=== PATIENT | male | born 1990 | race Caucasian/White ===

== ENCOUNTER 2018-03-13 09:36 | Emergency (ER) | payer OTHER ==
--- NOTE | 2018-03-13 09:47 | ED Physician Documentation ---
PD HPI HEADACHE - Stated complaint Stated Complaint: MIGRAINE/NAUSEA - History obtained from History obtained from: Patient - History of Present Illness Timing - onset: Last night (during the night, awoke with some headache, and it was more consistent/settled this morning, associated with nausea and light sensitivity. Feels like migraines he has had in the past (infrequent, occasional, has been few years).) Timing - onset during: Rest Timing - duration: Hours Timing - details: Gradual onset Worst headache ever?: No: Worst headache ever? Location: Front, Right Quality: Throbbing, Aching Associated symptoms: Nausea. No: Fever, Stiff neck, Weakness, Numbness, Vision changes Improved by: Dark room. No: Rest Worsened by: Light Contributing factors: No: Recent illness, Trauma Similar symptoms before: Diagnosis (migraines infrequently, had been few years since worse one like this) Recently seen: Not recently seen Review of Systems Constitutional: reports: Myalgias. denies: Fever, Chills Eyes: reports: Photophobia. denies: Loss of vision Nose: denies: Rhinorrhea / runny nose, Congestion Throat: denies: Sore throat Respiratory: denies: Cough GI: reports: Nausea. denies: Abdominal Pain, Vomiting, Diarrhea Neurologic: reports: Headache. denies: Focal weakness, Numbness, Confused, Altered mental status, Head injury PD PAST MEDICAL HISTORY - Past Medical History Cardiovascular: None Respiratory: None Neuro: Migraines - Present Medications Home Medications: Ambulatory Orders Medication Instructions Recorded Confirmed Naproxen 500 mg PO BID #20 tablet 03/13/18 Ondansetron Odt [Zofran] 4 mg TL Q6H PRN #5 tablet 03/13/18 Sumatriptan Succinate [Imitrex] 100 mg PO ONCE PRN #5 tablet 03/13/18 - Allergies Allergies/Adverse Reactions: Allergies Allergy/AdvReac Type Severity Reaction Status Date / Time No Known Drug Allergies Allergy Verified 03/13/18 09:52 PD ED PE NORMAL - Vitals Vital signs reviewed: Yes - General General: Alert and oriented X 3, No acute distress, Well developed/nourished - HEENT HEENT: PERRL, EOMI (light sensitive), Ears normal, Moist mucous membranes, Pharynx benign - Neck Neck: Supple, no meningeal sign, No adenopathy - Cardiac Cardiac: RRR, No murmur - Respiratory Respiratory: Clear bilaterally - Derm Derm: Normal color, Warm and dry - Extremities Extremities: Normal ROM s pain - Neuro Neuro: Alert and oriented X 3, alternative dispute resolution mediator 2-12 intact, No motor deficit, No sensory deficit, Normal speech Eye Opening: Spontaneous Motor: Obeys Commands Verbal: Oriented GCS Score: 15 PD ED PE EXPANDED - Neuro Neuro: Alert and Oriented X 3, Normal motor, Normal Sensation, Normal Speech, CNII-XII intact, Normal gait, Normal finger nose. No: Lethargic, Nystagmus, Aphasia, Dysarthria Results - Vitals Vitals: Vital Signs - 24 hr 03/13/18 03/13/18 09:43 11:49 Temperature 36.7 C Heart Rate 82 63 Respiratory 16 18 Rate Blood Pressure 129/86 H 118/76 O2 Saturation 96 97 Oxygen O2 Source Room air PD MEDICAL DECISION MAKING - ED course Complexity details: re-evaluated patient, considered differential (This seems like common migraine symptoms and he does have a history of migraines. Will treat with targeted medications toward migraine with Imitrex Toradol and Zofran. We will check for response to that.), d/w patient Departure - Departure Disposition: Home, Self Care Clinical Impression: Migraine headache Qualifiers: Migraine type: without aura Status migrainosus presence: without status migrainosus Intractability: not intractable Qualified Code(s): G43.009 - Migraine without aura, not intractable, without status migrainosus Condition: Stable Record reviewed to determine appropriate education?: Yes Instructions: ED Headache Migraine Prescriptions: Naproxen 500 mg PO BID #20 tablet Ondansetron Odt [Zofran] 4 mg TL Q6H PRN #5 tablet PRN Reason: Nausea / Vomiting Sumatriptan Succinate [Imitrex] 100 mg PO ONCE PRN #5 tablet PRN Reason: Migraine Comments: Rest and drink fluids today. Naproxen or Tylenol if needed for residual headache. Return if worsening symptoms again. For recurrent migraines in the future, you could try the sumatriptan along with Zofran and naproxen and see if it will just decrease the symptoms and make the migraine better. Follow-up with your primary care if you get frequent recurrent migraines as other medications can be used to reduce the frequency prophylactically. Forms: Activity restrictions Discharge Date/Time: 03/13/18 11:50
[2018-03-13] MEDS ORDERED: SUMAtriptan 6 MG/0.5 ML VIAL SUBQ STA (09:56)
[2018-03-13] MEDS ORDERED: ONDANSETRON ODT 4 MG TABLET TL STA (09:56)
[2018-03-13] MEDS ORDERED: KETOROLAC 30 MG/ML VIAL IM STA (09:56)
[2018-03-13 11:49] VITALS: BP 118/76
== END 2018-03-13 11:50 | disposition home or self-care (01) ==
LOC: ED 09:36
DX: G43.009 Migraine without aura, not intractable, without status migrainosus (principal)
CPT/HCPCS: 96372; 99283; 99284; Q0162

== ENCOUNTER 2018-03-26 11:17 | Emergency (ER) | payer OTHER ==
[2018-03-26] MEDS ORDERED: DEXAMETHASONE 10 MG/ML VIAL PO STA (12:55)
[2018-03-26] MEDS ORDERED: ONDANSETRON ODT 4 MG TABLET TL STA (12:55)
--- NOTE | 2018-03-26 12:58 | ED Physician Documentation ---
PD HPI URI - Stated complaint Stated Complaint: SORE THROAT NAUSEOUS - Chief complaint Chief Complaint: Heent - History obtained from History obtained from: Patient - History of Present Illness Timing - onset: Yesterday Timing duration: Days (2) Timing details: Gradual onset Pain level max: 6 Pain level now: 4 Associated symptoms: Nasal congestion, Rhinorrhea, Sore throat. No: Fever, Chills, Ear pain, Dry cough, Dyspnea Contributing factors: Sick contact. No: Immunocompromised, Unimmunized Improves by: Rest Worsened by: Activity, Other (swallowing) Similar symptoms before: Has not had sx before Recently seen: Not recently seen Review of Systems Constitutional: denies: Fever Cardiac: denies: Chest pain / pressure, Palpitations Respiratory: denies: Cough GI: denies: Abdominal Pain, Nausea, Vomiting, Diarrhea Skin: denies: Rash Musculoskeletal: denies: Neck pain, Back pain Neurologic: denies: Headache PD PAST MEDICAL HISTORY - Past Medical History Past Medical History: Yes Cardiovascular: None Respiratory: None Neuro: Migraines - Past Surgical History Past Surgical History: No - Present Medications Home Medications: Ambulatory Orders Medication Instructions Recorded Confirmed Naproxen 500 mg PO BID #20 tablet 03/13/18 Ondansetron Odt [Zofran] 4 mg TL Q6H PRN #5 tablet 03/13/18 Sumatriptan Succinate [Imitrex] 100 mg PO ONCE PRN #5 tablet 03/13/18 Ibuprofen [Motrin] 800 mg PO Q8H PRN #30 tablet 03/26/18 Ondansetron Odt [Zofran] 4 mg TL Q6H PRN #10 tablet 03/26/18 - Allergies Allergies/Adverse Reactions: Allergies Allergy/AdvReac Type Severity Reaction Status Date / Time No Known Drug Allergies Allergy Verified 03/26/18 11:23 - Social History Does the pt smoke?: No Smoking Status: Never smoker Does the pt have substance abuse?: No - Immunizations Immunizations are current?: Yes - POLST Patient has POLST: No PD ED PE NORMAL - Vitals Vital signs reviewed: Yes - General General: Alert and oriented X 3, No acute distress, Well developed/nourished - HEENT HEENT: PERRL, Moist mucous membranes - Neck Neck: Supple, no meningeal sign, No adenopathy, Other (Posterior pharyngeal erythema without tonsillar exudates. Uvula midline. Normal phonation. No trismus. ) - Cardiac Cardiac: RRR - Respiratory Respiratory: Clear bilaterally - Abdomen Abdomen: Soft, Non tender, Non distended - Derm Derm: Warm and dry, No rash - Neuro Neuro: Alert and oriented X 3 - Psych Psych: Normal mood, Normal affect Results - Vitals Vitals: Vital Signs - 24 hr 03/26/18 11:22 Temperature 36.7 C Heart Rate 85 Respiratory 16 Rate Blood Pressure 135/81 H O2 Saturation 98 Oxygen O2 Source Room air - Labs Labs: Laboratory Tests 03/26/18 11:25 Group A Strep Rapid Negative PD MEDICAL DECISION MAKING - ED course Complexity details: reviewed results, considered differential, d/w patient ED course: 28-year-old male with what appears to be a viral pharyngitis. Given dexamethasone here. Rapid strep is negative. Will prescribe Zofran for home as well. Patient is well-appearing, nontoxic. Afebrile. Tolerating p.o. without difficulty. Patient counseled regarding signs and symptoms for which I believe and urgent re-evaluation would be necessary. Patient with good understanding of and agreement to plan and is comfortable going home at this time This document was made in part using voice recognition software. While efforts are made to proofread this document, sound alike and grammatical errors may occur. Departure - Departure Disposition: 01 Home, Self Care Clinical Impression: Viral pharyngitis Condition: Good Instructions: ED Pharyngitis Viral Follow-Up: Provider,Other [Primary Care Provider] - Within 1 week Prescriptions: Ibuprofen [Motrin] 800 mg PO Q8H PRN #30 tablet PRN Reason: PAIN &/OR FEVER Ondansetron Odt [Zofran] 4 mg TL Q6H PRN #10 tablet PRN Reason: Nausea / Vomiting Comments: Return if you worsen. Follow-up with your doctor for further care. A throat culture was sent and if it is positive we will call you for antibiotics. Drink plenty of fluids and rest. Forms: Activity restrictions
[2018-03-26 13:05] VITALS: BP 128/74
== END 2018-03-26 13:04 | disposition home or self-care (01) ==
LOC: ED 11:17
DX: J02.8 Acute pharyngitis due to other specified organisms (principal); B97.89 Other viral agents as the cause of diseases classified elsewhere
CPT/HCPCS: 87070; 87430; 99283; Q0162